=== PATIENT | male | born 1990 | race Caucasian/White ===

== ENCOUNTER 2024-01-01 11:00 | Emergency (ER) | payer OTHER, MEDICAID, SELFPAY ==
--- NOTE | ~2024-01-01 | XR_ITS ---
PA, oblique, and lateral views of the right thumb Clinical history: Injury FINDINGS: No acute fracture or dislocation seen. Joint spaces are preserved. Osseous alignment intact . Soft tissues are unremarkable. IMPRESSION: Unremarkable exam. Reviewed, dictated and finalized at location M. IMPRESSION: Unremarkable exam.
--- NOTE | 2024-01-01 11:10 | ED.GENADULT ---
HPI - General Adult General Chief complaint: Extremity Injury, Upper Stated complaint: R THUMB INJURY Time Seen by Provider: 01/01/24 11:10 Source: patient Mode of arrival: ambulatory Limitations: no limitations History of Present Illness HPI narrative: 33-year-old male patient presents to the [facility] with complaints of right thumb pain and concerns for hemorrhoids. Patient states about 2-3 weeks ago he smashed his right thumb on a concrete wall at work. Patient states he has been wearing a brace on it taking Tylenol for pain and thought it would heal on its own. Patient states it is still painful when he presses to the thumb in between the PIP and MIP joint. patient states about 6 months ago he had an issue where he had to hold his feces for about 40 minutes and when he did have a go to the bathroom he felt some rectal pain. Patient states when he gets constipated and has to have a bowel movement he has been having some rectal pain the episode 6 months ago did show a little bit of blood but no blood recently. Denies any trauma to the rectum. Related Data Allergies Allergy/AdvReac Type Severity Reaction Status Date / Time NKDA Allergy Mild Uncoded 04/02/08 13:32 Review of Systems Review of Systems: CONSTITUTIONAL: Denies fever, chills, or sweats. EYES: Denies visual changes, redness, or discharge. ENT: Denies rhinorrhea, congestion, sore throat, or otalgia. CARDIOVASCULAR: Denies chest pain, palpitations, or edema. RESPIRATORY: Denies cough or dyspnea. GASTROINTESTINAL: Denies abdominal pain, nausea, vomiting, or diarrhea. GENITOURINARY: Denies dysuria or hematuria. Positive rectal pain intermittently with bowel movement SKIN: Denies rash or itching. MUSCULOSKELETAL: Denies back pain, joint pain, or myalgia. positive right thumb pain NEUROLOGIC: Denies headache, numbness, or weakness. PSYCHIATRIC: Denies anxiety or depression. PMFSH Comments At the time of my signature I agree with nursing past medical history, surgical, social, and family history. There is no relevant family history pertinent to the presenting complaint. Exam Narrative: GENERAL: Well-appearing, well-nourished, and in no acute distress. HEAD: Normocephalic, atraumatic. EYES: PERRLA and EOMI. ENT: Nares clear, no rhinorrhea or epistaxis. Mucous membranes moist. NECK: Supple. No lymphadenopathy CHEST: Clear to auscultation. No respiratory distress. HEART: Regular rate and rhythm. No murmur heard. Normal peripheral pulses. ABDOMEN: Soft, nontender, nondistended, normal active bowel sounds. RECTAL EXAM: no obvious hemorrhoids noted to the rectum noted on exam. No bleeding noted. No tears or open wounds. EXTREMITIES: The R hand is without obvious asymmetry or deformity when compared to the L hand. No swelling, erythema, atrophy, or obvious deformity. No surface trauma, open wounds, nail avulsion, tissue avulsion, partial or complete amputation, subungual hematoma, bony deformity. Normal cascade of fingers. Normal flexion and extension of fingers. FDS and FDP intact aganist restistance. No focal fullness, thobbing pain, swelling of fingertip. patient has tenderness noted to the right thumb between the MIP and PIP joints with pain also noted during extension and flexion of the thumb. Pulses and cap refill. SKIN: Warm, dry, no rash. NEURO: No focal deficits. Alert and oriented x3. Course Course Level of Care: Express Care Visit Reevaluation(s) Reevaluation #1: re-evaluated patient notified him that the x-ray is negative for any acute fractures. Discussed with him to continue using his splint, take Tylenol and ibuprofen for pain. Discussed with patient that he can continue using [id number] preparation H for any issues with rectal pain especially during bowel movements. Discussed with him that he should also be taking MiraLax daily to ensure that he is not straining when he takes a bowel movement. Date: 01/01/24 Time: 12:07 Vital Signs V
[2024-01-01 11:17] VITALS: BP 130/67; PULSE 92; RESP 16; TEMP 36.9; O2SAT 99
== END 2024-01-01 12:17 | disposition home or self-care (01) ==
PROVIDERS: Emergency Provider Nurse Practitioner Family
DX: S69.81XA Other specified injuries of right wrist, hand and finger(s), initial encounter (principal); X58.XXXA Exposure to other specified factors, initial encounter; Y99.0 Civilian activity done for income or pay; K62.89 Other specified diseases of anus and rectum
CPT/HCPCS: 73140; 99203; G0463